=== PATIENT | female | born 1990 | race American Indian/Alaskan Native ===

== ENCOUNTER 2017-04-04 08:52 | Emergency (ER) | payer MEDICAID ==
[2017-04-04 11:35] LABS: Basophils # (Auto) 0.1 K/mm3 (0.0-0.1); Basophils % (Auto) 0.8 % (0.0-1.8); Eosinophils # (Auto) 0.1 K/mm3 (0.0-0.4); Eosinophils % (Auto) 1.6 % (0.0-4.3); Hematocrit 40.4 % (30.3-42.9); Hemoglobin 13.1 gm/dl (10.1-14.3); Lymphocytes # (Auto) 0.8 K/mm3 (1.2-5.4); Mean Corpuscular HGB Conc 32 % (30-34); Mean Corpuscular Hemoglobin 25 pg (28-32); Mean Corpuscular Volume 76 fl (79-97); Monocytes # (Auto) 0.7 K/mm3 (0.0-0.8); Monocytes % (Auto) 9.5 % (0.0-7.3); Platelet Count 247 K/mm3 (140-440); Red Blood Count 5.29 M/mm3 (3.65-5.03); Red Cell Distribution Width 17.9 % (13.2-15.2)
[2017-04-04 11:49] LABS: Alanine Aminotransferase 12 units/L (7-56); Albumin 4.4 g/dL (3.9-5); BUN/Creatinine Ratio 22; Blood Urea Nitrogen 13 mg/dL (7-17); Calcium 9.3 mg/dL (8.4-10.2); Hemolysis Index 2
[2017-04-04 12:04] LABS: Bilirubin,Urine NEG (Negative); Blood,Urine SM (Negative); Color,Urine Yellow (Yellow); Mucus,Urine FEW /HPF; Nitrite,Urine NEG (Negative); Protein,Urine <15 mg/dL mg/dL (Negative); Urobilinogen,Urine < 2.0 mg/dL (<2.0)
[2017-04-04] MEDS ORDERED: NACL 0.9% 1000 ML 1,000 ML IV ONE (19:04)
[2017-04-04] MEDS ORDERED: TYLENOL #3 PO ONE (19:04)
[2017-04-04] MEDS ORDERED: ZOFRAN IV ONE (19:05)
[2017-04-04 21:20] VITALS: BP 91/60
--- NOTE | 2017-04-04 21:23 | Emergency Department Report ---
HPI - General Chief Complaint: Abdominal Pain Time Seen by Provider: 04/04/17 18:43 - HPI HPI: The patient is a 26-year-old female , who presents for evaluation of abdominal pain. She reports abdominal pain for the past one to 2 days, 8/10 in severity, crampy in quality, concentrating to the lower abdomen, radiating to the lower back, and associated with vaginal spotting. The patient denies trauma to the abdomen, fever, chills, night sweats, diarrhea, blood in the stool, dark tarry stool, dysuria, hematuria, flank pain, genital discharge. She shares that she tested positive for within the past week. ED Past Medical Hx - Past Medical History Previous Medical History?: No - Surgical History Past Surgical History?: No - Social History Smoking Status: Current Some Day Smoker Substance Use Type: None - Medications Home Medications: Home Medications Medication Instructions Recorded Confirmed Last Taken Type Acetaminophen [Tylenol] 1,000 mg PO Q6HR #20 tablet 04/04/17 Unknown Rx Ondansetron [Zofran TAB] 4 mg PO Q8HR PRN #15 tablet 04/04/17 Unknown Rx Pnv No.95/Ferrous Fum/Folic AC 1 each PO QDAY #31 tablet 04/04/17 Unknown Rx [ Vitamin Tablet] ED Review of Systems ROS: Stated complaint: STOMACH PAIN Other details as noted in HPI Constitutional: denies: fever ENT: denies: throat or neck pain Respiratory: denies: cough, shortness of breath Cardiovascular: denies: chest pain Endocrine: denies unexplained weight loss or gain Gastrointestinal: reports abdominal pain, nausea Genitourinary: denies: dysuria Musculoskeletal: denies: leg swelling Skin: denies: rash Neurological: denies: headache Hematological/Lymphatic: denies: easy bleeding or easy bruising Psych: denies sadness or hopelessness Physical Exam - Physical Exam Vital Signs: Vital Signs 04/04/17 04/04/17 10:43 18:52 Temperature 98.6 F Pulse Rate 96 H 74 Respiratory 18 16 Rate Blood Pressure 156/90 Blood Pressure 122/64 [Left] O2 Sat by Pulse 100 96 Oximetry Physical Exam: General: well-nourished, well-developed, no acute distress Head: Normocephalic, atraumatic Eyes: normal sclera ENT: Mucous membranes are pink and moist Neck: trachea midline, neck supple, No neck stiffness, no cervical adenopathy Respiratory: Breath sounds equal bilaterally, no wheezing, rales, or rhonchi Cardio: S1 and S2 present, no murmurs, rubs, gallops, capillary refill is brisk Abdomen: Normoactive bowel sounds, soft abdomen, periumbilical tenderness to palpation present, no rigidity, no guarding or rebound tenderness Musc: No tenderness of the back, No pitting edema Skin: No rash Neuro: no facial drooping, normal speech Psych: Normal affect ED Course Vital Signs 04/04/17 04/04/17 10:43 18:52 Temperature 98.6 F Pulse Rate 96 H 74 Respiratory 18 16 Rate Blood Pressure 156/90 Blood Pressure 122/64 [Left] O2 Sat by Pulse 100 96 Oximetry ED Medical Decision Making - Lab Data Result diagrams: 04/04/17 11:00 04/04/17 11:00 - Medical Decision Making The patient was seen and examined by myself. The patient is placed on a monitor tech and continuous pulse ox. On initial evaluation, the patient was found to be in no distress. Evaluation orders are placed. The patient given a tablet of Tylenol 3 for pain. Lab results exhibited hCG of 30, and Rh+ blood type, and otherwise labs were non-concerning including WBC, hemoglobin, hematocrit, electrolytes, renal function, LFTs, lipase, and urinalysis. Ultrasound of the abdomen and pelvis is negative for findings concerning for ectopic , but unable to rule out ectopic . The patient was reevaluated and reported that their symptoms were markedly improved. The patient is stable for discharge with outpatient follow-up. The patient is given follow-up and return instructions. The patient expressed understanding and agreed with the plan. The patient is discharged in stable condition. Critical care attestation.: If time is entered above; I have spent that time in minutes in the direct care of this critically ill patient, excluding procedure time. ED Disposition Clinical Impression: Abdominal pain, acute, periumbilical, Threatened miscarriage in early Disposition: -01 TO HOME OR SELFCARE Is pt being admited?: No Does the pt Need Aspirin: No Condition: Stable Instructions: Abdominal Pain (ED), Threatened Miscarriage (ED) Additional Instructions: Your ultrasound was unable to identify a normal intrauterine , and also was not able to rule out an ectopic . Make sure to follow-up with your [facility] MANAGER within the next 48 hours for repeat B-HCG testing and trending. Your beta hCG level should double in 2 days if your is progressing as normal. You could have an ectopic and you must immediately present to an emergency department should you develop worsening of your symptoms or severe pain, vaginal bleeding, lightheadedness, passing out, confusion, or fever. Referrals: THIAGO BROOKS MD [Staff Physician] - 3-5 Days Time of Disposition: 23:12
--- NOTE | 2017-04-04 22:35 | Ultrasound Report ---
FINAL REPORT EXAM: US OB TRANSVAGINAL HISTORY: abd pain, vaginal bleeding TECHNIQUE: Obstetrical ultrasound transvaginal PRIORS: None. FINDINGS: The uterus is 8.6 x 4.5 x 5.6 centimeters. At the mid fundus there is a 1.8 x 1.4 x 2.1 centimeter echogenic structure. At the lower uterine segment there is a 3.1 x 1.4 x 2.6 centimeter echogenic structure findings consistent with uterine fibroids endometrial thickness is 0.57 centimeters Right ovary is 2.8 x 1.6 x 2.1 centimeters Left ovary is 2.3 x 2.2 x 2.4 centimeters There is a 2 centimeter right ovarian cyst most likely dominant follicle. A follicular 0.9 centimeter left ovarian cyst is noted IMPRESSION: Two uterine fibroids 2 centimeter right ovarian cyst likely dominant follicle No intrauterine gestation identified could be very early gestation continued followup recommended
--- NOTE | 2017-04-04 22:37 | Ultrasound Report ---
FINAL REPORT EXAM: US OB < = 14 WEEKS FETUS HISTORY: abd pain, vaginal bleeding TECHNIQUE: PRIORS: None. FINDINGS: The uterus is 8.6 x 4.5 x 5.6 centimeters. At the mid fundus there is a 1.8 x 1.4 x 2.1 centimeter echogenic structure. At the lower uterine segment there is a 3.1 x 1.4 x 2.6 centimeter echogenic structure findings consistent with uterine fibroids endometrial thickness is 0.57 centimeters Right ovary is 2.8 x 1.6 x 2.1 centimeters Left ovary is 2.3 x 2.2 x 2.4 centimeters There is a 2 centimeter right ovarian cyst most likely dominant follicle. A follicular 0.9 centimeter left ovarian cyst is noted IMPRESSION: Two uterine fibroids 2 centimeter right ovarian cyst likely dominant follicle No intrauterine gestation identified could be very early gestation continued followup recommended
== END 2017-04-04 23:53 | disposition home or self-care (01) ==
LOC: ED 08:52
DX: O20.0 Threatened abortion (principal); O26.891 Other specified pregnancy related conditions, first trimester; R10.33 Periumbilical pain; F17.200 Nicotine dependence, unspecified, uncomplicated
CPT/HCPCS: 36415; 76801; 76817; 80053; 81001; 84702; 85025; 86900; 86901; 96374; 99284; J2405; J7030